=== PATIENT | male | born 1955 | race Caucasian/White ===

== ENCOUNTER → 2016-10-03 | Outpatient (REF) | LOC: ZLAB.WCH 11:39 | DX: Z01.89 Encounter for other specified special examinations (principal) | CPT/HCPCS: G0103 ==

== ENCOUNTER → 2017-04-08 | Outpatient (REF) | LOC: ZLAB.WCH 09:05 | DX: Z01.89 Encounter for other specified special examinations (principal) ==

== ENCOUNTER → 2017-11-12 | Outpatient (REF) | LOC: ZLAB.WCH 08:54 | DX: Z01.89 Encounter for other specified special examinations (principal) | CPT/HCPCS: G0103 ==

== ENCOUNTER → 2018-02-19 | Outpatient (REF) | LOC: ZLAB.WCH 10:58 | DX: Z01.89 Encounter for other specified special examinations (principal) ==